=== PATIENT | female | born 2000 | race Caucasian/White ===

== ENCOUNTER → 2025-04-28 11:32 | Outpatient (REF) | payer OTHER, MEDICAID, SELFPAY ==
--- NOTE | 2025-04-28 11:32 | S_PTH ---
PATIENT: Анна Hunter LOC: [facility] U#:[id number] AGE/SX: 24/F ROOM: RE04/28/[address]: Jenny Flores PA-C : 2000 BED: DIS: SPEC #: [id number] RECD: 04/28/25 12:37 STATUS: REESE RETrista #: [id number] ANDERSON: 04/28/25 11:[address]: Jenny Flores DEPT: [facility] Surgical RECD BY: Miroslava Banegas ENTERED: 04/28/25 12:37 SP TYPE: Surgical OTHR DR: Domingo Gonzalez MD Tissues: A - Cyst Procedures: Hematoxylin and Eosin Stain Gross and Microscopic Level 4
--- OUTSIDE RECORDS SUMMARY | 2025-04-28 12:38 | XMS_ITS | Clinical Summary ---
Author Organization [facility] Address [address] 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
--- OUTSIDE RECORDS SUMMARY | 2025-04-28 12:38 | XMS_ITS | Encounter Summary ---
Author Organization [facility] Address [address] [place] [address] Care Team Providers Care Hair Dryer Name Role Phone Unavailable Primary Care Provider Unavailabl e Encounter Details Date Type Department Care Team (Late st Contact Info) Description 2000 Outpatient Historical [facility] Pediatrics - [facility] [address] [address] Julián Castle MD [address] [place] [address] [id number] [place] [address] Social History Tobacco Use Types Packs/Day Years Used Date Smoking Tobacco: Never Assessed Comments Unknown Sex and Gender Information Value Date Recorded Sex Assigned at Not on file 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
--- OUTSIDE RECORDS SUMMARY | 2025-04-28 12:38 | XMS_ITS | Encounter Summary ---
[facility] Organization [facility] Address [address] Rondon: [place] [address] Care Team Providers Care Active Directory Administrator Name Role Phone Unavailable Primary Care Provider Unavailabl e Encounter Details Date Type Department Care Team (Late st Contact Info) Description 2000 Inpatient Historical [place], Julián Espana MD [address] [place] [address] Shikha Baker MD [address] [place] [address] [address] [place] [address] Single liveborn, born in hospital, delivered without mention of delivery (Primary Dx) Social History Tobacco Use Types Packs/Day Years Used Date Smoking Tobacco: Never Assessed Comments Unknown Sex and Gender Information Value Date Recorded Sex Assigned at Not on file 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
--- OUTSIDE RECORDS SUMMARY | 2025-04-28 12:38 | XMS_ITS | Encounter Summary ---
Author Organization [facility] Address [address] [place] [address] Care Team Providers Care Ecological Risk Assessor Name Role Phone Unavailable Primary Care Provider Unavailabl e Encounter Details Date Type Department Care Team (Late st Contact Info) Description 2000 Outpatient Historical [facility] Pediatrics - [facility] [address] 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
== END ==
LOC: ANHLAB 11:32
PROVIDERS: PCP Pediatrics; Visit Provider Physician Assistant Surgical
DX: D23.39 Other benign neoplasm of skin of other parts of face (principal)
CPT/HCPCS: 88305